=== PATIENT | female | born 1985 | race Caucasian/White ===

== ENCOUNTER 2024-10-10 15:00 | Outpatient (RCR) | payer BC, SELFPAY | END 2025-02-07 23:59 | disposition home or self-care (01) | PROVIDERS: Visit Provider Family Medicine | DX: N39.3 Stress incontinence (female) (male) (principal); Z3A.00 Weeks of gestation of pregnancy not specified; R33.9 Retention of urine, unspecified; R27.8 Other lack of coordination; Z51.89 Encounter for other specified aftercare | CPT/HCPCS: 97110; 97140; 97162; 97530; 97535 ==

== ENCOUNTER 2024-11-01 18:45 | Inpatient (IN) | payer BC, SELFPAY ==
[2024-11-01] VITALS (15 sets, daily range): BP systolic 116–150; BP diastolic 69–87; PULSE 64–81; RESP 16; TEMP 36.9; O2SAT 99–100; BMI 24.0
[2024-11-01 19:50] LABS: Basophils Percent Auto 0.4 % (0.0-3.0); Eosinophils Percent Auto 0.1 % (0.0-7.0); Hematocrit 39.1 % (33.0-51.0); Hemoglobin* 13.5 gm/dL (12.0-16.0); Immature Granulocytes Pct Auto 0.2 %; Mean Corpuscular HGB Conc 35 gm/dL (32-36); Mean Corpuscular Hemoglobin 32 pg (26-34); Mean Corpuscular Volume 93 fL (80-100); Monocytes Percent Auto 5.4 % (0.0-11.0); Neutrophils Percent Auto 80.9 % (42.0-72.0); Platelet Count* 183 K/uL (140-440); Red Blood Count 4.21 m/uL (4.00-5.20)
[2024-11-01 19:55] LABS: Slide Review Reflex No
[2024-11-01] MEDS: AMPICILLIN 2 GM in 0.9 % SODIUM CHLORIDE Mini-bag 100 ML IVPB (20:00)
[2024-11-01] MEDS: ONDANSETRON 2 MG/ML inj 4 MG IV (21:34)
[2024-11-01] MEDS: OXYTOCIN 30 unit/500 ML in NS 30 UNIT/500 ML BAG 300 UNIT IVPB (22:04)
[2024-11-01] MEDS: miSOPROStoL 800 MCG/4 TABLET PR (22:32)
[2024-11-01] MEDS: LIDOCAINE 1 % PF 30 ML INJECTION (22:39)
[2024-11-01 23:00] LABS: Hematocrit 38.9 % (33.0-51.0); Hemoglobin* 13.5 gm/dL (12.0-16.0); Mean Corpuscular HGB Conc 35 gm/dL (32-36); Mean Corpuscular Hemoglobin 32 pg (26-34); Mean Corpuscular Volume 93 fL (80-100); Platelet Count* 165 K/uL (140-440); White Blood Count* 14.93 K/uL (4.50-11.00)
[2024-11-01] MEDS: fentaNYL 100 MCG/2 ML inj IVP (23:15)
[2024-11-01 23:18] LABS: Alanine Aminotransferase* 41 U/L (4-35); Aspartate Amino Transferase* 36 U/L (12-35); Blood Urea Nitrogen* 12 mg/dL (5-24); Creatinine* 0.5 mg/dL (0.5-1.5); Est. Creatinine Clearance* 133.24; Estimated Glomerular Filt Rate 121 ml/min
[2024-11-01 23:26] LABS: Slide Review Reflex No
[2024-11-01] MEDS: METHYLERGONOVINE MALEATE 0.2 MG/ML INJ IM (23:33)
[2024-11-01] MEDS: TRANEXAMIC ACID 100 MG/ML INJ 1000 MG IV (23:33)
--- NOTE | 2024-11-01 23:42 | P.OBCN_ITS ---
OB - CN: HPI Date of Consult Time Seen by Provider: 23:42 Date Seen: 11/01/24 Patient: Junaid Patient Consult date: 11/01/24 Requesting Physician: Ernesto Starks MD Primary Care Provider: Shadia Tate DO Consult Narrative Narrative: Laila 39-year-old 4 para 1021 now 2. She is admitted to the [facility] with spontaneous onset of labor on 11/01/2024. She is GBS positive. She was not adequately treated with prophylactic antibiotics because her labor progressed too quickly. She had a normal spontaneous vaginal delivery at 10:02 p.m.. I was asked to see the patient for continued heavier than normal vaginal bleeding after delivery. Concern for cervical laceration. The patient had an unmedicated delivery. She received 50 mcg of fentanyl IV before I did my exam. She had a term, male infant at 38 weeks [address] Please see Dr[address] Starks's note for complete details regarding the delivery. See Dr. Starks's history and physical note for complete details of the patient's care and past medical, surgical, family and social history. History of Present Dating criteria: based on LMP care: good care Ultrasounds: normal 1st trimester US and normal mid trimester US complications comment: AMA History History 4 Elective abortions Para 2 Spontaneous abortions Hx # Term Pregnancies Ectopic pregnancies Hx # Pregnancies Multiple births Number of Living Children 1 Labs GBS status: positive OB Labs: Lab Assessment Start: 11/01/24 18:36 Freq: ONCE Status: Complete Protocol: PC.OBGBS Activity Type Activity Date Activity User E-sign Co-sign Detail Recorded Client Recorded Date Recorded By Document 11/01/24 19:44 [facility] [id number] 11/01/24 19:45 [facility] 11/01/24 19:44 Lab Assessment GBS Status positive GBS Additional Criteria None Treatment Required OK Are Labs Available Yes Maternal Blood Type O Maternal RH Factor Positive Evaluate Maternal Rubella Immune Status Immune Hepatitis B Surface Antigen Negative Maternal HIV Status Negative Maternal Syphillis (RPR) Status Negative [facility] Social History Smoking Status: Never smoker Meds Home Medications and Allergies Home Medications ?Medication ?Instructions ?Recorded ?Confirmed ?Type No Known Home Medications 11/01/24 11/01/24 History Allergies Allergy/AdvReac Type Severity Reaction Status Date / Time No Known Drug Allergies Allergy Verified 11/01/24 18:55 OB - H&P: Exam Physical Exam: Vital signs: Temp Pulse Resp BP Pulse Ox 98.5 F 75 16 139/73 99 11/01/24 17:22 11/01/24 23:37 11/01/24 17:22 11/01/24 23:37 11/01/24 19:27 Narrative: General: Pleasant, , woman in no acute distress. her baby. The patient was placed in the dorsal lithotomy position and the back of her bed lowered from high Ballard's position. She was given 50 mcg of IV fentanyl prior to the exam. A weighted speculum was placed in the posterior fornix of the vagina. Right angle retractors were then used to visualize the cervix. A ring forceps was used to grasp the cervix and moved the forceps circumferentially to visualize the entire cervix. There was no evidence of cervical laceration. There was a first-degree midline perineal laceration and a very superficial right periurethral laceration. Neither of these were bleeding so were not repaired. There was small clots protruding from the cervical os. Patient received 1 g of IV TXA and 1 dose of Methergine 0.2 mg IM. She had received IV Pitocin and did mg of Cytotec ID prior to my arrival. Did a manual exploration of her uterus and the lower uterine segment atonic with clots. These clots were manually removed and after removal and dosing of TXA and Methergine the bleeding subsided to minimal. The patient tolerated this exam well. She was given a dose of IV Ancef 2 g x1 due to manual exploration of her uterus. A bedside ultrasound was then performed to evaluate the endometrium there was no evidence retained products of conception. All the retractors were removed from the vaginal canal. OB - Results Labs Labs: Short CBC 11/01/24 11/01/24 Range/Units 19:00 22:50 WBC 14.20 H 14.93 H (4.50-11.00) K/uL Hgb 13.5 13.5 (12.0-16.0) gm/dL Hct 39.1 38.9 (33.0-51.0) % Plt Count 183 165 (140-440) K/uL BMP 11/01/24 22:50 BUN 12 Creatinine 0.5 Liver Function 11/01/24 Range/Units 22:50 AST 36 H (12-35) U/L ALT 41 H (4-35) U/L OB - CN: A/P Assessment and Plan (1) (normal spontaneous vaginal delivery): Status: Acute (2) Uterine atony, , current hospitalization: Problem details: EBL 500 mL. Patient received IV Pitocin, ID Cytotec, Methergine x1 and TXA 1 g IV. Lower uterine segment atony. Status: Acute Assessment and Plan: 1. Check hemoglobin in the morning and start oral iron supplementation if hemoglobin is less than 10.0. 2. Continue to monitor her patient's bleeding per usual protocol. 3. 1 dose of IV Ancef 2 g to prevent infection due to manual exploration of the uterus. (3) Care and examination of lactating mother: Status: Acute
[2024-11-02] VITALS (11 sets, daily range): BP systolic 106–145; BP diastolic 67–87; PULSE 58–74; RESP 12–20; TEMP 36.6–36.8; O2SAT 95–98
[2024-11-02] MEDS: IBUPROFEN 600 MG TABLET PO ×2 (00:01→19:58)
[2024-11-02] MEDS: CEFAZOLIN 2 GM INJ IVP (00:07)
--- NOTE | 2024-11-02 00:26 | PM.OBHPLI ---
OB - H&P: HPI Labor/Induction History of Present Illness Time Seen by Provider: 18:00 Date Seen: 11/01/24 Chief Complaint: The patient is a 39 year old 4 para 1 at 38.4 weeks gestation by 1st trimester ultrasound, who presents with contractions. Chief complaint: maternity Narrative: Sherrill Wyatt is a 39 year old female who has had an uncomplicated to date other than advanced maternal age. She has seen perinatology and has had growth scans and BPP. She had the onset of contractions early this morning and they have gotten worse through the day. No leaking fluid. No bleeding. Feeling good movement. Otherwise feeling well. History of Present Dating criteria: based on LMP care: none complications comment: AMA Labs Blood type: O (+) positive Rubella: immune RPR/VDLR: nonreactive GBS status: positive Review of Systems Status of ROS: Reports: 6 or more systems reviewed and unremarkable except as noted in History and below Meds Home Medications and Allergies Home Medications ?Medication ?Instructions ?Recorded ?Confirmed ?Type No Known Home Medications 11/01/24 11/01/24 History Allergies Allergy/AdvReac Type Severity Reaction Status Date / Time No Known Drug Allergies Allergy Verified 11/01/24 18:55 OB - H&P: Exam Physical Exam: Vital signs: Temp Pulse Resp BP Pulse Ox 98.5 F 65 16 145/68 H 99 11/01/24 17:22 11/02/24 00:22 11/01/24 17:22 11/02/24 00:22 11/01/24 19:27 Constitutional: Constitutional: no acute distress Detailed Labor and Delivery Exam: Patient Gravid: Yes Dilation (cm): 3 (Per RN) Contraction frequency (min): 5 Tachysystole: No Fetus (Single): Amniotic Membrane Status: intact Heart Rate Baseline: 130 Monitor Accelerations: Present Monitor Decelerations: None Online [employer] Manager Variability: Moderate (6-25) Routine Neurological Exam: Present alert and oriented X3 OB - Problem Based A/P Additional Plan (1) Spontaneous onset of labor: Status: Acute Plan Cervix changed to 3.5 cm after 1 hour. Plan to admit and manage expectantly. Will start antibiotics for + GBS status. Patient does not want epidural at this time. Delivery/Labor/Induction Plan Plan: expectant management
--- NOTE | 2024-11-02 00:57 | W.PM.VAGDEL1 ---
Procedure Delivery date: 11/01/24 Procedure Done: only Procedure Details: Patient is a 39 year old at 38.4 weeks gestation who presented to L&D with contractions for 12 hours. Found to be in spontaneous labor. GBS + so antibiotics were started. Desired intermittent monitoring. She progressed spontaneously and was found to be complete at 2158. She started pushing spontaneously at 2200 and delivered a liveborn male at 2202. I did not make the delivery but came about 30 seconds after the baby was born. He was crying spontaneously on my arrival. Bleeding was mild. Mild atony. Pitocin immediately started. Fundus was firm but mild bleeding persisted. A small 1st degree perineal and small periurethral laceration were noted but these were not actively bleeding. Placenta delivered intact and spontaneously after 20 minutes. 3 vessel cord. Bleeding persisted so Dr. Bowen was consulted to rule out a cervical laceration. She did not see a cervical laceration. Manual exploration was done and clots were removed. She was given a dose of fentanyl prior to evaluation. Lower uterine segment atony was noted. She was then given TXA and methergine. She was noted to have 2 mildly elevated blood pressures after delivery in the 140s. Labs were obtained and were normal except mildly elevation in liver enzymes of 36 and 41 of AST and ALT. With elevated pressures and elevated liver enzymes, she meets criteria for preeclampsia. No severe features at this time. Will repeat labs in 6 hours and if liver enzymes are > 2 ULN, or she develops any other severe features, will start magnesium. Plan to closely monitor. Intrapartal Events: Precipitous Labor <3 Hrs Delivery monitor: none Route of delivery: Laceration description: Perineal - 1st Degree Anesthesia type: None Sophia Infant Gender: Male Placental Delivery Description: Spontaneous Cord Description: 3 Vessels total score - 1 minute: 9 total score - 5 minute: 9
[2024-11-02 04:51] LABS: Hematocrit 39.9 % (33.0-51.0); Hemoglobin* 13.8 gm/dL (12.0-16.0); Mean Corpuscular HGB Conc 35 gm/dL (32-36); Mean Corpuscular Hemoglobin 32 pg (26-34); Mean Corpuscular Volume 92 fL (80-100); Platelet Count* 160 K/uL (140-440); Red Blood Count 4.33 m/uL (4.00-5.20); White Blood Count* 19.26 K/uL (4.50-11.00)
[2024-11-02 04:53] LABS: Slide Review Reflex No
[2024-11-02 05:09] LABS: Alanine Aminotransferase* 42 U/L (4-35); Aspartate Amino Transferase* 41 U/L (12-35); Blood Urea Nitrogen* 9 mg/dL (5-24); Creatinine* 0.5 mg/dL (0.5-1.5); Est. Creatinine Clearance* 133.24; Estimated Glomerular Filt Rate 121 ml/min; Magnesium* 1.9 mg/dL (1.5-2.6)
--- NOTE | 2024-11-02 08:36 | PM.OBPNVD1 ---
OB - PN:Subj Subjective Date Seen: 11/02/24 Patient comments OB post-: no complaints, pain well controlled and tolerating diet infant status: and doing well feeding status: exclusively Narrative: Sherrill is a 39 yo now pp day 1 from a complicated by pp hemorrhage. She has done well overnight. BP have normalized, preeclampsia labs still normal other than slight elevation of AST and ALT, but unchanged from last night. Lochia normal. OB - PN: Obj Exam Physical Exam: Vital signs: Temp Pulse Resp BP Pulse Ox O2 Del Method 98.0 F 63 12 129/80 97 Room Air 11/02/24 03:59 11/02/24 06:16 11/02/24 03:59 11/02/24 06:16 11/02/24 03:59 11/02/24 03:59 Constitutional: Constitutional: no acute distress Routine Abdominal Exam: Fundus: Present firm (at umbilicus) Detailed Lower Extremity Exam: Comments: lower extremities without edema. Routine Neurological Exam: Neurological: Present alert and oriented X3 OB - PN: Obj Data Labs Labs: Laboratory Results - last 24 hr 11/01/24 11/01/24 11/02/24 19:00 22:50 04:46 WBC 14.20 H 14.93 H 19.26 H RBC 4.21 4.20 4.33 Hgb 13.5 13.5 13.8 Hct 39.1 38.9 39.9 MCV 93 93 92 MCH 32 32 32 MCHC 35 35 35 RDW Coeff of Tamy 13.0 Plt Count 183 165 160 Neut % (Auto) 80.9 H Lymph % (Auto) 13.[address] % (Auto) 5.4 Eos % (Auto) 0.1 Baso % (Auto) 0.4 Neut # (Auto) 11.50 H Lymph # (Auto) 1.80 [place] # (Auto) 0.80 Eos # (Auto) 0.00 Baso # (Auto) 0.10 Abs Immat Gran (auto) 0.00 Imm/Tot Granulo (auto) 0.2 BUN 12 9 Creatinine 0.5 0.5 Estimated Creat Clear 133.24 133.24 Estimated GFR 121 121 Magnesium 1.9 AST 36 H 41 H ALT 41 H 42 H Blood Type O Positive Antibody Screen NEGATIVE OB - PN: A/P Delivery Assessment and Plan (1) Uterine atony, , current hospitalization: Problem details: EBL 500 mL. Patient received IV Pitocin, [place] Cytotec, Methergine x1 and TXA 1 g IV. Lower uterine segment atony. Status: Acute (2) (normal spontaneous vaginal delivery): Status: Acute Assessment and Plan: Routine pp cares. Recheck labs in 6 hours and close monitoring for signs/symptoms of preeclampsia. Plan Plan: routine care
[2024-11-02] MEDS: DOCUSATE SODIUM 100 MG CAPSULE PO (09:13)
[2024-11-02 10:56] LABS: Hematocrit 38.4 % (33.0-51.0); Hemoglobin* 13.5 gm/dL (12.0-16.0); Mean Corpuscular HGB Conc 35 gm/dL (32-36); Mean Corpuscular Hemoglobin 33 pg (26-34); Mean Corpuscular Volume 93 fL (80-100); Platelet Count* 165 K/uL (140-440); Red Blood Count 4.14 m/uL (4.00-5.20); White Blood Count* 16.44 K/uL (4.50-11.00)
[2024-11-02 10:57] LABS: Slide Review Reflex No
[2024-11-02 11:13] LABS: Alanine Aminotransferase* 44 U/L (4-35); Aspartate Amino Transferase* 42 U/L (12-35); Blood Urea Nitrogen* 9 mg/dL (5-24); Creatinine* 0.5 mg/dL (0.5-1.5); Est. Creatinine Clearance* 133.24; Estimated Glomerular Filt Rate 121 ml/min; Magnesium* 1.8 mg/dL (1.5-2.6)
[2024-11-02] MEDS: ACETAMINOPHEN 500 MG TABLET 1000 MG PO (22:03)
[2024-11-03 00:44] VITALS: BP 122/85; PULSE 71; RESP 12; TEMP 36.7; O2SAT 97
[2024-11-03] MEDS: IBUPROFEN 600 MG TABLET PO ×2 (01:31→08:26)
[2024-11-03] MEDS: ACETAMINOPHEN 500 MG TABLET 1000 MG PO (04:01)
[2024-11-03 04:06] VITALS: BP 117/78
--- NOTE | 2024-11-03 07:19 | PM.OBDSVD1 ---
DS: Providers Provider Date Seen: 11/03/24 Date of admission: 11/01/24 18:45 Primary care physician: Shadia Tate DO Admitting Clinician: Ernesto Starks MD Attending Physician on discharge: Ernesto Starks MD Date of Discharge: 11/03/24 DS: Diagnosis Discharge Diagnosis (1) (normal spontaneous vaginal delivery): Status: Acute (2) Uterine atony, , current hospitalization: Status: Acute Problem details: EBL 500 mL. Patient received IV Pitocin, [place] Cytotec, Methergine x1 and TXA 1 g IV. Lower uterine segment atony. Exam Const: Vital Signs, click to edit/add: Vital Signs - 24 hr 11/02/24 09:00 11/02/24 11:24 11/02/24 16:36 Temperature 98 F 98.0 F 98.3 F Pulse Rate [Pulse Oximeter] 58 L 69 69 Respiratory Rate 18 20 Blood Pressure [Ri ght Arm] 132/74 110/67 138/81 Pulse Oximetry 96 98 Oxygen Delivery Me thod Room Air Room Air Room Air 11/02/24 16:54 11/02/24 20:00 11/03/24 00:44 Temperature 98.1 F Pulse Rate [Pulse Oximeter] 68 71 Respiratory Rate 16 12 Blood Pressure [Ri ght Arm] 106/74 114/76 122/85 Pulse Oximetry 95 97 Oxygen Delivery Me thod Room Air Room Air 11/03/24 04:06 Temperature Pulse Rate [Pulse Oximeter] Respiratory Rate Blood Pressure [Ri ght Arm] 117/78 Pulse Oximetry Oxygen Delivery Me thod Common normals: no apparent distress, average body habitus and oriented x3 General appearance: cooperative and comfortable GI: Common normals: Normal to inspection, nondistended, normoactive bowel sounds present and soft to palpation Palpation: soft Other: uterus firm at umbilicus. Extremity: Common normals: normal to inspection and no pedal edema Neuro: Common normals: oriented x3 OB - DS: Summary Hospital Course Hospital Course: The patient is a 39 year old G 2 P 2 at 38.4 weeks gestation that was admitted to the Center on 11/01/24 for active labor. She had an uncomplicated vaginal delivery. She delivered a viable male infant. She did have a pp hemorrhage due to lower uterine segment atony. She is breast feeding. the patient has done well. Peripartum Data delivery method: Vaginal Laceration description: Perineal - 1st Degree Episiotomy description: None complications: other (patient had elevated blood pressure immediately , with slightly elevated AST/ALT, these remained stable and no other signs/symptoms preeclampsia) Gender: Male Discharge Plan: Home Status at Discharge Functional status at discharge: independent ambulation Overall status at discharge: patient is progressing back to baseline Time Spent with Patient Time attestation: Total time spent providing and/or coordinating discharge services: Time spent: Less than 30 minutes Discharge Plan Discharge Disposition: Home, Self-Care Date of Admission: 11/01/24 18:45 Attending Provider on Discharge: Estella Houston Primary Care Provider: Shadia Tate Condition: Improved Anticipated Discharge Date/Time: 11/03/24 07:24 Discharge Medications: No Action No Known Home Medications Discharge Orders: Discharge Order (Routine); Ordered 11/03/24 Ordered By: Estella Houston Patient Education: OB Vaginal/Breast Feeding Activity Level: No Restrictions Activity Detail: nothing per vagina x 6 weeks. Discharge Diet: Regular Follow Up Appointments: Shadia Tate, [Primary Care Provider] - (follow up in 2 weeks for pp mental health check and to recheck LFTs) Forms: [employer] Info Instructions
[2024-11-03] MEDS: DOCUSATE SODIUM 100 MG CAPSULE PO (08:27)
[2024-11-03 08:30] VITALS: BP 121/78; PULSE 80; RESP 17; TEMP 36.6; O2SAT 96
[2024-11-03 16:13] LABS: Rapid Plasma Reagin (RPR) Non Reactive (Non Reactive)
== END 2024-11-03 13:20 | disposition home or self-care (01) | DRG 541 ==
LOC: OB OUT 21:49 → OB 21:49
PROVIDERS: Admitting Provider Surgery; PCP Family Medicine; Visit Provider Surgery
DX: O99.824 Streptococcus B carrier state complicating childbirth (principal); O72.1 Other immediate postpartum hemorrhage; O14.95 Unspecified pre-eclampsia, complicating the puerperium; O62.3 Precipitate labor; O70.0 First degree perineal laceration during delivery; Z3A.38 38 weeks gestation of pregnancy; Z37.0 Single live birth
CPT/HCPCS: 36415; 76815; 82565; 82570; 83735; 84156; 84450; 84460; 84520; 85018; 85025; 85027; 86592; 86850; 86900; 86901; A9270; J0290; J0690; J2003; J2210; J2405; J3010

== ENCOUNTER 2024-11-05 14:25 | Outpatient (CLI) | payer BC, SELFPAY ==
--- NOTE | 2024-11-05 16:23 | W.PM.LAC.MC ---
Consult Note - Mom Date of Visit Date of visit: 11/05/24 Reason for consultation: Assistance Needed and Breast/Nipple Issue Visit Code: Visit Patient's Information Phone number: [phone] : 4 Para: 2 Allergies No Known Drug Allergies Allergy (Verified 11/01/24 18:55) Delivery Information Delivery type: Vaginal Gestational Age: 38+ Gestational Weight For Age: AGA Weight: 3.49 kg Discharge Weight: 3.29 kg Percentage weight loss: 5.8 Baby's Information Baby's Age at Visit: 4 days Baby's Provider or Clinic: [facility] Jaundice: Yes Past Experience Past Experience: Yes Current Frequency of Day Feedings: every 1-2 hours Frequency of Night Feedings: every 1-2 hours Both Breasts: Yes Suck: strong, leaves indents on mom's breast Latch: painful, worse than when in the hospital now that milk has come in Length of Time: sometimes 3 minutes, sometimes 6-12 min based on record in phone Goals: 1-2 years Pumping Pumping: Yes (Joes) Quantity Pumped: 2 oztotal in 2 days Supplementing EBM Supplement: No Formula Supplement: No Baby Elimination Number of Wet Diapers a Day: ea feeding or more Number of BM a Day: 4-5 in last 24 hours Breast/Nipple Condition Breast Information: Breasts are symmetrical with rounded lower quadrants, intramammary distance is less than 1.5 inches. No erythema. Nipples are supple, everted prior to feeding. Breast Shape: Round Engorgement: Yes Interventions for Engorgement: Warm Pack, Hand Expressing Breast Milk and Pumping (Jose) Maternal Nipple Condition - Left: Common Nipple Maternal Nipple Condition - Right: Common Nipple Sore Nipples: Yes Interventions for Sore Nipples: Lansinoh/Nipple Cream Baby Assessment Skin: Normal and Yellow (to abdomen) Tongue/frenulum: Restricted-frenulum attaches at tip of tongue, heart shaped (not quite tip of tongue but very near end) and Restricted mid-range Palate: Average Lips: Relaxed and Symmetrical Jaw Alignment: Symmetrical Mucosa: [place], moist Onsite Observation Pre-Feed weight: 3.308 kg Post-Feed weight: 3.374 kg Milk Transferred (mL): 66 Position: Football Attachment/latch-on achieved: With difficulty Suck pattern: Suck burst and normal rest Swallow: Audible, consistent Behavior following feed: Relaxed, sleepy Pre-Nursing Left Nipple: Within Normal Limits Pre-Nursing Right Nipple: Within Normal Limits Post-Nursing Left Nipple: Redness Post-Nursing Right Nipple: Redness Assessments/Interventions Assessments/Interventions: observation: Taught reverse pressure softening prior to latching baby to the breast to allow for more of a breast sandwich and deeper latch. Jose latches easily to mom's left breast in football hold and nurses strongly with audible swallows for 10 minutes. Some smacking sounds noted but mostly he stays latched well Jose then latches easily to mom's right breast, able to get a deeper latch using asymmetric latch technique from the beginning and mom reports this is much less painful than the first side and less painful that his feedings at home Remind mom to bring baby to the breast vs bringing the breast to the baby Stays latched to the 2nd side for about 5 minutes. Discussed breast compression to help keep baby at the breast a bit longer for a full feeding to allow for slightly longer stretches between feedings; also discussed frequent feeding helpful to manage her current engorgement symptoms. Transfers 66ml milk total in feeding Both nipples are nicely rounded after nursing and very similar in shape as prior to nursing, although some excoration noted on both nipples at the end of the feeding Discussion on role of tongue tie to wide, deep comfortable latch as well as effective milk transfer Baby has appt with Dr. Matos after this appt and mom will discuss further with him re: treatment options. Discussed craniosacral therapy, info for Dr. Edgar in [place] given, and Lymphatic Massage in given and demonstrated to help with engorgement. Education provided: Early feeding cues to maximize timing of latching, Asymmetric latch technique for wide/deep latch to increase milk, Transfer for baby and increase comfort for mom, Supply/demand nature of milk supply, Sore nipple treatment options, Hand expression and Pumping for milk management Handouts Provided: Tongue tie release resources Cranosacral therapy options Lymphatic massage in Follow-Up Suggested follow up: Appointment as needed Time Spent Time spent with patient (min): 90 Meds Home Medications and Allergies Home Medications ?Medication ?Instructions ?Recorded ?Confirmed ?Type No Known Home Medications 11/01/24 11/01/24 History Allergies Allergy/AdvReac Type Severity Reaction Status Date / Time No Known Drug Allergies Allergy Verified 11/01/24 18:55
== END 2024-11-05 14:26 | disposition home or self-care (01) ==
PROVIDERS: PCP Family Medicine; Visit Provider Surgery
DX: Z39.1 Encounter for care and examination of lactating mother (principal)
CPT/HCPCS: G0463